=== PATIENT | female | born 1960 | race Caucasian/White ===

== ENCOUNTER → 2019-03-13 11:24 | Outpatient (CLI) | payer BC, SELFPAY ==
--- NOTE | 2019-03-13 11:32 | XR_ITS ---
EXAM: XR lumbar spine min 4V HISTORY: ITS.REASON: ACUTE LOW SHIKHA BACK PAIN W/O SCIATICA ORDERING PHYSICIAN: Bc Boyer MD PATIENT AGE: 59 years COMPARISON: None FINDINGS: Normal alignment. No fracture or dislocation. Mild multilevel degenerative disc disease L2-S1. Mild facet sclerosis at L5-S1. IMPRESSION: Degenerative change, no acute finding
== END ==
PROVIDERS: PCP Family Medicine; Visit Provider Family Medicine
DX: M54.5 Low back pain (principal)
CPT/HCPCS: 72110

== ENCOUNTER → 2019-04-22 12:26 | Outpatient (CLI) | payer BC, SELFPAY ==
--- NOTE | 2019-04-22 12:38 | MR_ITS ---
MR lumbar spine wo con, MR 3-d myelogram/MRCP HISTORY: LBP X-12 months. Bilateral leg tingling at times. ITS.REASON: ACUTE MIDLINE LOW BACK PAIN, LUMBAR DDD ORDERING PHYSICIAN: Trena Finn APRN PATIENT AGE: 59 years Comparison: X-RAY 03/13/19 TECHNIQUE: Standard multiplanar multiecho sequences are performed without contrast. 3-D MIP and myelographic images are also rendered and reviewed FINDINGS: Normal alignment. The spinal cord ends at the L1 level. L2-L3: Minimal bulging disc. Minimal retrolisthesis of L2 2 mm. Small annular fissure on the right. Mild bilateral narrowing. L3-L4: Mild bulging disc. Facet and ligamentum flavum hypertrophy with mild bilateral lateral recess and foraminal narrowing. L4-L5: Bulging disc with a small broad-based central disc protrusion slightly eccentric toward the left. Facet and ligamentum flavum hypertrophy with moderate bilateral lateral recess and foraminal narrowing with canal stenosis. L5-S1: Mild degenerative disc disease with mild bulging disc with a small broad-based central/ right paracentral disc protrusion with annular fissure. Facet and ligamentum flavum hypertrophy with mild bilateral foraminal narrowing. No extruded herniated disc. IMPRESSION: 1. L2-L3: Minimal bulging disc. Minimal retrolisthesis of L2 2 mm. Small annular fissure on the right. Mild bilateral narrowing. 2. L3-L4: Mild bulging disc. Facet and ligamentum flavum hypertrophy with mild bilateral lateral recess and foraminal narrowing. 3. L4-L5: Bulging disc with a small broad-based central disc protrusion slightly eccentric toward the left. Facet and ligamentum flavum hypertrophy with moderate bilateral lateral recess and foraminal narrowing with canal stenosis. 4. L5-S1: Mild degenerative disc disease with mild bulging disc with a small broad-based central/ right paracentral disc protrusion with annular fissure. Facet and ligamentum flavum hypertrophy with mild bilateral foraminal narrowing
== END ==
PROVIDERS: PCP Family Medicine; Visit Provider Nurse Practitioner
DX: M54.5 Low back pain (principal); M51.36 Other intervertebral disc degeneration, lumbar region
CPT/HCPCS: 72148; 76376

== ENCOUNTER → 2022-08-08 10:30 | Outpatient (CLI) | payer BC, SELFPAY ==
[2022-08-08 20:08] LABS: Adenovirus,PCR Not Detected (NotDetected); Bordetella Pertussis Not Detected (NotDetected); Chlamydophila Pneumoniae, PCR Not Detected (NotDetected); Coronavirus 19, PCR Not Detected (NotDetected); Coronavirus 229E Not Detected (NotDetected); Coronavirus NL63 Not Detected (NotDetected); Coronavirus OC43 Not Detected (NotDetected); Coronovirus HKU1,PCR Not Detected (NotDetected); Human Metapneumovirus Not Detected (NotDetected); Influenza A, PCR Not Detected (NotDetected); Influenza AH1, 2009 Not Detected (NotDetected); Influenza AH1, PCR Not Detected (NotDetected); Influenza AH3,PCR Not Detected (NotDetected); Influenza B, PCR Not Detected (NotDetected); Mycoplasma Pneumoniae, PCR Not Detected (NotDetected); Parainfluenza 1, PCR Not Detected (NotDetected); Parainfluenza 2, PCR Not Detected (NotDetected); Parainfluenza 3, PCR Not Detected (NotDetected); Parainfluenza 4, PCR Not Detected (NotDetected); Respiratory Syncytial Virus Not Detected (NotDetected); Rhinovirus/Enterovirus Not Detected (NotDetected)
== END ==
PROVIDERS: PCP Nurse Practitioner; Visit Provider Nurse Practitioner
DX: R06.2 Wheezing (principal); J06.9 Acute upper respiratory infection, unspecified; J40 Bronchitis, not specified as acute or chronic
CPT/HCPCS: 87581; 87632; 87798; C9803; U0003; U0005